=== PATIENT | male | born 1950 | race Caucasian/White ===

== ENCOUNTER → 2016-05-18 | Outpatient (CLI) | payer OTHER ==
--- NOTE | 2016-05-18 15:18 | RAD ---
EXAM DESCRIPTION: Metastatic Series CLINICAL HISTORY: 66 yearsMale, MONOCLONAL GAMMOPATHY COMPARISON: None. IMPRESSION: 29 images of the skeleton was submitted for interpretation. Atherosclerotic disease of the aortic arch. The lungs are likely clear. Degenerative change within the entire spine noted. Vascular calcifications noted within the carotid bulbs. Nonspecific small bowel gas pattern. No definitive lucencies on today's study to suggest lytic osseous disease. Electronically signed by: Joey Jj MD 05/18/2016 3:17 PM [employer]
== END | disposition home or self-care (01) ==
LOC: LAB.O 09:37
PROVIDERS: ATTEND Internal Medicine Hematology & Oncology
DX: D47.2 Monoclonal gammopathy (principal)

== ENCOUNTER → 2016-05-23 | Outpatient (CLI) | payer OTHER | END | disposition home or self-care (01) | LOC: LAB.O 13:16 | PROVIDERS: ATTEND Internal Medicine Hematology & Oncology | DX: D47.2 Monoclonal gammopathy (principal) ==

== ENCOUNTER → 2016-09-26 | Outpatient (CLI) | payer OTHER | END | disposition home or self-care (01) | LOC: LAB.O 12:40 | PROVIDERS: ATTEND Internal Medicine Hematology & Oncology | DX: D47.2 Monoclonal gammopathy (principal) ==

== ENCOUNTER → 2016-10-23 | Outpatient (CLI) | payer OTHER | END | disposition home or self-care (01) | LOC: US 10:12 | PROVIDERS: ATTEND Thoracic Surgery (Cardiothoracic Vascular Surgery) | DX: I71.4 Abdominal aortic aneurysm, without rupture (principal) ==

== ENCOUNTER 2017-04-14 06:31 | Emergency (ER) | payer MEDICARE ==
[2017-04-14] MEDS ORDERED: SODIUM CHLORIDE 0.9% 1000ML 1,000 ML ONE (06:56)
--- NOTE | 2017-04-14 07:04 | ED.PDOC ---
History of Present Illness - History of Present Illness Associated Symptoms: chest pain - Pleuritric pain R chest <Abbe Polanco - Last Filed: 04/14/17 09:09> - General Source: family Exam Limitations: no limitations - History of Present Illness Initial Comments: Gama Silva 67 y/o male brought by with watery diarrhea tonight , feeling weak,SOB and low blood pressure.He has history of ESRD-on hemodialysis had one yesterday-,HTN.No history of DM. Timing/Duration: 4-6 hours, getting worse, other - see hpi Severity: severe Improving Factors: nothing Worsening Factors: other - see hpi Associated Symptoms: shortness of breath, weakness, other - see hpi <Skyler Alonzo R - Last Filed: 04/15/17 08:12> - General Chief Complaint: Respiratory Problem Stated Complaint: SOB Diaylsis Pt Time Seen by Provider: 04/14/17 06:58 - History of Present Illness Allergies/Adverse Reactions: Allergies NO KNOWN ALLERGY Allergy (Verified 04/14/17 06:47) Review of Systems - Review of Systems Cardiology: States: see HPI - pleuritic on R, chest pain Genitourinary: States: no symptoms reported, see HPI - ESRD-HD Musculoskeletal: States: other <Abbe Polanco - Last Filed: 04/14/17 09:09> - Review of Systems Constitutional: States: see HPI, weakness EENTM: States: no symptoms reported Respiratory: States: see HPI, short of breath Cardiology: States: no symptoms reported Gastrointestinal/Abdominal: States: see HPI, diarrhea Musculoskeletal: States: other - ESRD-HD Skin: States: no symptoms reported Neurological: States: no symptoms reported Endocrine: States: no symptoms reported Hematologic/Lymphatic: States: anemia - chronic <Skyler Alonzo R - Last Filed: 04/15/17 08:12> Past Medical History (General) - Patient Medical History Hx Seizures: No Hx Stroke: No Hx Dementia: No Hx Asthma: No Hx of COPD: Yes Hx Cardiac Disorders: No Hx Congestive Heart Failure: No Hx Pacemaker: No Hx Hypertension: Yes Hx Thyroid Disease: No Hx Diabetes: No Hx Gastroesophageal Reflux: No Hx Renal Disease: Yes - Statrted Dialyslis x 2 weeks ago Hx Cancer: No Hx of HIV: No Hx Hepatitis C: No Hx MRSA: No Surgical History: other - AAA-repai,a-v shunt for dialysis - Vaccination History Hx Tetanus, Diphtheria Vaccination: No Hx Influenza Vaccination: No Hx Pneumococcal Vaccination: Yes - Social History Hx Tobacco Use: Yes Hx Alcohol Use: Yes - 15 years ago Hx Substance Use: No Hx Substance Use Treatment: No Hx Depression: No Hx Physical Abuse: No Hx Emotional Abuse: No Hx Suspected Abuse: No - Activities of Daily Living Grooming Ability: Standby Assistance Eating (Feeding) Ability: Independent Toileting Ability: Standby Assistance <Skyler Alonzo - Last Filed: 04/15/17 08:12> Family Medical History - Family History Mother Family History: Unknown Hx Family;Other: LIVER DISEASE <Skyler Alonzo - Last Filed: 04/15/17 08:12> Physical Exam - Physical Exam Respiratory: rhonchi Rectal Exam: deferred <Abbe Polanco - Last Filed: 04/14/17 09:09> - Physical Exam General Appearance: Ill Appearing, Restless Ears, Nose, Throat: hearing grossly normal, normal ENT inspection, normal pharynx Neck: non-tender, supple Respiratory: no accessory muscle use, rales - bases, other - tachypneic RR-28 Cardiovascular/Chest: no gallop, no JVD, tachycardia, irregularly irregular Peripheral Pulses: radial,right: 1+, radial,left: 1+ Gastrointestinal/Abdominal: non tender, soft, no organomegaly Back Exam: no vertebral tenderness Extremity: non-tender, no pedal edema, no calf tenderness Neurologic: alert, oriented x 3 Skin Exam: warm/dry, pallor <Skyler Alonzo R - Last Filed: 04/15/17 08:12> Progress - EKG/XRAY/CT EKG: Fibrillation Comments: HR 110, QRS 98, QTc 476 XRAY: chest <Abbe Polanco - Last Filed: 04/14/17 09:09> - Progress Progress: 04/14/17 07:13 Last Vital Signs Temp 100.2 F H 04/14/17 06:49 Pulse 133 H 04/14/17 06:49 Resp 16 04/14/17 06:49 BP 86/60 04/14/17 06:49 Pulse Ox 88 L 04/14/17 06:49 - EKG/XRAY/CT EKG: Atrial, Flutter, nonspecific ST T wave Chg Comments: HR 110 <Christopher Alonzoo R - Last Filed: 04/15/17 08:12> Departure <Abbe Polanco - Last Filed: 04/14/17 09:09> - Departure Time of Disposition: 09:45 <Skyler Alonzo R - Last Filed: 04/15/17 08:12> - Departure Clinical Impression: Atrial fibrillation with RVR, ESRD (end stage renal disease) on dialysis Sepsis Qualifiers: Sepsis type: sepsis due to unspecified organism Qualified Code(s): A41.9 - Sepsis, unspecified organism Pneumonia Qualifiers: Pneumonia type: due to unspecified organism Laterality: right Lung location: lower lobe of lung Qualified Code(s): J18.1 - Lobar pneumonia, unspecified organism Clinical Impression: (Ruled Out): Atrial fibrillation Disposition: Transfer to Hospital Condition: Poor Departure Forms: Patient Portal Self Enrollment Referrals: Johnny Smallwood MD [Primary Care Provider] - 1-2 Weeks Critical Care Note - Critical Care Note Total Time (mins): 40 Comments: Critical event - Hypotension Critical findings - RLL pneumonia, Lactate 5.1, New onset Atrial Fib, Leukocytosis, hypotension Critical actions - IV NS fluid resusitation, Levaquin IV , Nebulizer treatment , Transfer to higher level of care Levaquin Systems at risk: Cardiovascular, Respiratory, Time spent; 40 min <Abbe Polanco - Last Filed: 04/14/17 09:09> Transfer to Outside Facility - Transfer Information Accepting Provider:: Viviana Brown Accepting Facility: [facility] Reason for Transfer: specialized care not available - Critical care and dialysis needed <Abbe Polanco - Last Filed: 04/14/17 09:09>
[2017-04-14] MEDS ORDERED: SODIUM CHLORIDE 0.9% 250ML 250 ML IVS ONE ×3 (07:12→08:32)
--- NOTE | 2017-04-14 07:56 | RAD ---
Procedure: XR CHEST 1 VIEW Exam Date: 04/14/2017 Ordering Provider: Skyler Alonzo MD Clinical Indication: sob Comparison: None Findings: Cardiomediastinal silhouette: Unremarkable when allowing for patient rotation. Focal lung consolidation: Right basilar consolidation. Left lung is clear. Pleural effusion: No large pleural effusions. Pneumothorax: None Bones and soft tissues: Nonacute Impression: 1. Right basilar pneumonia Electronically signed by: Umesh Saeed MD 04/14/2017 7:55 AM [employer]
[2017-04-14] MEDS ORDERED: levoFLOXacin 750MG IV 750 MG in PREMIX BAG 1 BAG IVPB ONE (08:11)
[2017-04-14] MEDS ORDERED: IPRATROPIUM/ALBUTEROL 3 ML VIAL NEB ONE (08:15)
[2017-04-14] MEDS ORDERED: DIGOXIN INJ 0.5 MG/2 ML AMP IV ONE (09:08)
[2017-04-14 09:42] VITALS: BP 126/63; TEMP 100.8; O2SAT 94
== END 2017-04-14 09:50 | disposition short-term general hospital (02) ==
LOC: ER 06:31
DX: A41.9 Sepsis, unspecified organism (principal); J18.1 Lobar pneumonia, unspecified organism; I48.91 Unspecified atrial fibrillation; I12.0 Hypertensive chronic kidney disease with stage 5 chronic kidney disease or end stage renal disease; N18.6 End stage renal disease; Z99.2 Dependence on renal dialysis; J44.9 Chronic obstructive pulmonary disease, unspecified; Z87.891 Personal history of nicotine dependence
CPT/HCPCS: 36415; 36600; 71045; 80048; 80076; 82550; 82553; 82803; 82805; 83605; 84484; 85025; 85610; 85730; 87040; 87502; 93005; 94640; J1160; J1956; J7030; J7050; J7620